=== PATIENT | male | born 1985 | race African-American/Black ===

== ENCOUNTER 2023-02-04 17:23 | Inpatient (IN) | payer OTHER ==
[2023-02-04 18:48] VITALS: BMI 21.2
[2023-02-04] MEDS ORDERED: LOPERAMIDE HCL 2 MG CAPSULE PO PRN ×2 (21:04→21:13)
[2023-02-04] MEDS ORDERED: NALOXONE HCL (KLOXXADO) 8 MG SPRAY NS PRN (21:04)
[2023-02-04] MEDS ORDERED: POLYETHYLENE GLYCOL (HEALTHYLAX) 3350 17 GM PACKET PO PRN (21:04)
[2023-02-04] MEDS ORDERED: BENZONATATE 200 MG CAPSULE PO PRN (21:04)
[2023-02-04] MEDS ORDERED: guaiFENesin 600 MG TABLET.ER (FP) PO PRN (21:04)
[2023-02-04] MEDS ORDERED: hydrOXYzine PAMOATE 25 MG CAPSULE (FP) PO PRN (21:04)
[2023-02-04] MEDS ORDERED: ACETAMINOPHEN 325 MG TABLET (FP) PO PRN (21:04)
[2023-02-04] MEDS ORDERED: BENZOCAINE/MENTHOL (CHLORASEPTIC ) LOZENGE MM PRN (21:04)
[2023-02-04] MEDS ORDERED: MAGNESIUM HYDROX 2400MG/30ML ORAL SUSPENSION 30 ML CUP PO PRN (21:04)
[2023-02-04] MEDS ORDERED: IBUPROFEN 400 MG TABLET (FP) PO PRN (21:04)
[2023-02-04] MEDS ORDERED: NALOXONE HCL 0.4 MG/ML VIAL IM PRN (21:04)
[2023-02-04] MEDS ORDERED: IBUPROFEN 600 MG TABLET (FP) PO PRN (21:04)
[2023-02-04] MEDS ORDERED: MAG HYDROX/AL HYDROX/SIMETH 30 ML UNIT-DOSE CUP PO PRN (21:04)
[2023-02-04] MEDS ORDERED: COLLOIDAL OATMEAL 1 BAR EACH TP PRN (21:04)
[2023-02-04] MEDS ORDERED: NICOTINE POLACRILEX 2 MG GUM BUC PRN (21:13)
[2023-02-04] MEDS ORDERED: THIAMINE HCL 100 MG TABLET (FP) PO SCH (22:00)
[2023-02-04] MEDS ORDERED: MELATONIN 5 MG TABLETS PO SCH ×2 (22:00)
[2023-02-05 01:40] VITALS: BP 105/69; PULSE 95; RESP 18; TEMP 97.5
[2023-02-05] MEDS ORDERED: NICOTINE 14 MG/24 HOURS TOPICAL PATCH TD SCH (10:00)
[2023-02-05] MEDS ORDERED: PRENATAL VITAMINS W/ FOLIC ACID TABLET (FP) PO SCH (10:00)
[2023-02-05 11:28] LABS: CHLORIDE 103 mmol/L (98-107); POTASSIUM 4.1 mmol/L (3.5-5.1); SODIUM 138 mmol/L (136-145)
[2023-02-05 11:43] LABS: ALK PHOS 96 U/L (45-117)
[2023-02-05 11:47] LABS: ALBUMIN 2.9 g/dl (3.4-5.0); GLUCOSE,RANDOM 101 mg/dL (74-106)
[2023-02-05 11:48] LABS: ANION GAP 7 mmol/L (4-13); BLOOD UREA NITROGEN 4.9 mg/dL (7-18); CO2 28 mmol/L (21-32)
[2023-02-05 11:50] LABS: SGPT/ALT 19 U/L (13-61)
[2023-02-05 11:51] LABS: CREATININE 0.8 mg/dL (0.55-1.3); SGOT/AST 14 U/L (15-37); TOT PROT 8.6 g/dl (6.4-8.2)
[2023-02-05 11:52] LABS: BILIRUBIN,TOTAL 0.2 mg/dL (0.2-1)
[2023-02-05 12:22] LABS: SYPHILIS W/ RPR CONF REACTIVE (NONREACTIVE)
[2023-02-05] MEDS ORDERED: risperiDONE 1 MG TABLET PO SCH (22:00)
== END 2023-02-05 13:33 | disposition left against medical advice (07) | DRG 770 ==
LOC: YASAS 17:23 → Y3W 02-05 01:12
PROVIDERS: ADMIT Allergy & Immunology; ATTEND Psychiatry & Neurology Pain Medicine
PROC: HZ42ZZZ Group Counseling for Substance Abuse Treatment, Cognitive-Behavioral (ICD-10-PCS; principal; 2023-02-05)
DX: F10.20 Alcohol dependence, uncomplicated (principal); F12.20 Cannabis dependence, uncomplicated; F17.210 Nicotine dependence, cigarettes, uncomplicated; F20.9 Schizophrenia, unspecified; Z21 Asymptomatic human immunodeficiency virus [HIV] infection status
CPT/HCPCS: 36415; 80053; 80307; 86593; 86780; 86803; 87635; 93005; 93010

== ENCOUNTER 2023-04-02 22:51 | Emergency (ER) | payer OTHER ==
[2023-04-02 23:30] VITALS: BP 126/75; PULSE 111; RESP 20; TEMP 103; BMI 22.0
== END 2023-04-03 00:38 | disposition left against medical advice (07) ==
LOC: JER 22:51
DX: R51.9 Headache, unspecified (principal); F10.20 Alcohol dependence, uncomplicated; B20 Human immunodeficiency virus [HIV] disease; Y90.9 Presence of alcohol in blood, level not specified
CPT/HCPCS: 99282-25